=== PATIENT | male | born 1985 | race Two or more races ===

== ENCOUNTER 2025-05-13 10:59 | Inpatient (IN) | payer SELFPAY ==
[~2025-05-13] VITALS: Ht 177.8 cm; Wt 122.5 kg
[~2025-05-13 10:59] MED LIST: ALPR0.25 PO; SERT25TA PO
[2025-05-13] MEDS: IV NS 0.9% 1,000 ML BAG IV ONE (11:11)
[2025-05-13] MEDS: LEVETIRACETAM (500MG) 1,000 MG in IV NS 0.9% 90 ML IV STA (11:12)
[2025-05-13 11:37] LABS: PLATELET COUNT (AUTO) 268 K/uL (150-450); RED BLOOD CELL COUNT(AUTO) 5.27 MIL/uL (4.5-6.0); RED CELL DISTRIBUTION WIDTH 13.7 % (11.5-15.0); WHITE BLOOD COUNT (AUTO) 8.1 K/uL (4.3-11.0)
[2025-05-13 11:56] LABS: CALCIUM, SERUM 8.2 mg/dL (8.5-10.1); CREATININE 1.0 mg/dL (0.6-1.3); SODIUM SERUM 145 mmol/L (136-145); UREA NITROGEN, BLOOD 16 mg/dL (7-18)
[2025-05-13 12:01] LABS: ALCOHOL, BLOOD < 3 mg/dL (0-10)
[2025-05-13 12:34] LABS: BARBITURATE, URINE NEGATIVE (NEGATIVE); BENZODIAZEPINE, URINE NEGATIVE (NEGATIVE); CANNABINOID, URINE NEGATIVE (NEGATIVE); COCCAINE, URINE NEGATIVE (NEGATIVE); OPIATE, URINE NEGATIVE (NEGATIVE)
[2025-05-13 12:37] LABS: AMPHETAMINE, URINE POSITIVE (NEGATIVE)
[2025-05-13] MEDS: LORAZEPAM INJ 2 MG/ML VIAL IV ONE (12:45)
[2025-05-13] MEDS ORDERED: LORAZEPAM INJ 2 MG/ML VIAL ONE (12:45)
[2025-05-13] MEDS ORDERED: ONDANSETRON HCL/PF 4 MG/2 ML VIAL IVP PRN (16:30)
[2025-05-13] MEDS ORDERED: ZOLPIDEM TARTRATE 5 MG TABLET PO PRN (16:30)
[2025-05-13] MEDS ORDERED: MAGNESIUM HYDROXIDE 30 ML UDC PO PRN (16:30)
[2025-05-13] MEDS ORDERED: LORAZEPAM INJ 2 MG/ML VIAL IV PRN (16:30)
[2025-05-13] MEDS ORDERED: MAG HYDROX/AL HYDROX/SIMETH 30 ML UDC PO PRN (16:30)
[2025-05-13] MEDS ORDERED: Z GUARD REMEDY 4 OZ OINT TP PRN (16:30)
[2025-05-13 17:03] VITALS: BP 136/94; TEMP 98.1; O2SAT 98
[2025-05-13] MEDS: ACETAMINOPHEN 325 MG TABLET PO PRN (18:29)
[2025-05-13 21:00] VITALS: BP 136/87; TEMP 97.5; O2SAT 96
[2025-05-13] MEDS: LEVETIRACETAM (250 MG) 250 MG TABLET PO SCH (22:03)
[2025-05-13] MEDS: IV 1/2NS 1000 ML 1,000 ML IV PRN (22:28)
[2025-05-14 01:00] VITALS: BP 119/90; TEMP 97.7; O2SAT 97
[2025-05-14 05:00] VITALS: BP 141/84; TEMP 97.7; O2SAT 96
[2025-05-14 07:44] LABS: PLATELET COUNT (AUTO) 238 K/uL (150-450); RED BLOOD CELL COUNT(AUTO) 4.92 MIL/uL (4.5-6.0); RED CELL DISTRIBUTION WIDTH 14.2 % (11.5-15.0); WHITE BLOOD COUNT (AUTO) 6.0 K/uL (4.3-11.0)
[2025-05-14] MEDS: PANTOPRAZOLE 40 MG TABLET.DR PO SCH (08:02)
[2025-05-14 08:13] LABS: CALCIUM, SERUM 8.0 mg/dL (8.5-10.1); CREATININE 0.6 mg/dL (0.6-1.3); PHOSPHORUS 3.7 mg/dL (2.5-4.9); SODIUM SERUM 145.0 mmol/L (136-145); UREA NITROGEN, BLOOD 13.0 mg/dL (7-18)
[2025-05-14 09:00] VITALS: BP 143/106; TEMP 98.1; O2SAT 95
[2025-05-14 09:15] LABS: LDL 80.0 mg/dL (0-99)
[2025-05-14 13:00] VITALS: BP 127/96; TEMP 98.6; O2SAT 99
[2025-05-14] MEDS ORDERED: LEVE500T9 PO (14:03)
[2025-05-14 17:00] VITALS: BP 138/94; TEMP 98.1; O2SAT 96
[2025-05-14 17:36] VITALS: TEMP 98.6
== END 2025-05-14 19:58 | disposition home or self-care (01) | DRG 101 ==
LOC: ER 11:16 → TELE1 14:10
DX: R56.9 Unspecified convulsions (principal); E66.9 Obesity, unspecified; F32.A Depression, unspecified; J45.909 Unspecified asthma, uncomplicated; F15.10 Other stimulant abuse, uncomplicated; F41.9 Anxiety disorder, unspecified; Z68.38 Body mass index [BMI] 38.0-38.9, adult; G47.33 Obstructive sleep apnea (adult) (pediatric)
CPT/HCPCS: 36415; 70450-TC; 71045-TC; 80048-TC; 80061-TC; 82962-TC; 83735-TC; 84100-TC; 84443-TC; 85025-TC; 87081-TC; 95819-TC; A4223; G0378; G0480; J1953; J2060; J3490; J7030